=== PATIENT | female | born 1965 | race Caucasian/White ===

== ENCOUNTER 2017-03-26 06:50 | Emergency (ER) | payer SELFPAY ==
[2017-03-26] MEDS ORDERED: Ondansetron ODT 4 MG TAB ONE (07:54)
== END 2017-03-26 09:12 | disposition home or self-care (01) ==
LOC: ERS 06:50
DX: R11.2 Nausea with vomiting, unspecified (principal); J45.909 Unspecified asthma, uncomplicated; F41.9 Anxiety disorder, unspecified; E05.90 Thyrotoxicosis, unspecified without thyrotoxic crisis or storm; G40.909 Epilepsy, unspecified, not intractable, without status epilepticus; F31.9 Bipolar disorder, unspecified; Z87.891 Personal history of nicotine dependence
CPT/HCPCS: 99283; Q0162

== ENCOUNTER 2017-03-30 13:09 | Emergency (ER) | payer SELFPAY ==
[2017-03-30] MEDS ORDERED: Ketorolac Tromethamine 30 MG/ML VIAL ONE (14:45)
== END 2017-03-30 14:57 | disposition home or self-care (01) ==
LOC: ERS 13:09
DX: K08.89 Other specified disorders of teeth and supporting structures (principal); G40.909 Epilepsy, unspecified, not intractable, without status epilepticus; J45.909 Unspecified asthma, uncomplicated; E05.90 Thyrotoxicosis, unspecified without thyrotoxic crisis or storm; F31.9 Bipolar disorder, unspecified; F41.9 Anxiety disorder, unspecified; Z87.891 Personal history of nicotine dependence
CPT/HCPCS: 96372; J1885

== ENCOUNTER 2017-04-26 19:29 | Emergency (ER) | payer SELFPAY | END 2017-04-26 19:45 | disposition home or self-care (01) | LOC: ERS 19:29 | DX: K02.9 Dental caries, unspecified (principal); E05.90 Thyrotoxicosis, unspecified without thyrotoxic crisis or storm; G40.909 Epilepsy, unspecified, not intractable, without status epilepticus; J45.909 Unspecified asthma, uncomplicated; F41.9 Anxiety disorder, unspecified; F31.9 Bipolar disorder, unspecified; Z87.891 Personal history of nicotine dependence | CPT/HCPCS: 99282 ==

== ENCOUNTER 2017-06-14 15:32 | Emergency (ER) | payer SELFPAY ==
--- NOTE | 2017-06-14 18:41 | RAD ---
PA AND LATERAL OF THE CHEST: INDICATIONS: Flu-like symptoms. COMPARISON: No comparisons are available. IMPRESSION: No consolidation. COMMENTS: The lungs are clear. The cardiomediastinal silhouette is within normal limits. No acute osseous abn ormality is evident. POS: [facility]
== END 2017-06-14 18:12 | disposition home or self-care (01) ==
LOC: ERS 15:32
DX: J20.9 Acute bronchitis, unspecified (principal); J45.909 Unspecified asthma, uncomplicated; I50.9 Heart failure, unspecified; F41.9 Anxiety disorder, unspecified; F31.9 Bipolar disorder, unspecified; E05.90 Thyrotoxicosis, unspecified without thyrotoxic crisis or storm; Z87.891 Personal history of nicotine dependence
CPT/HCPCS: 71020; 99406

== ENCOUNTER 2017-06-16 06:06 | Emergency (ER) | payer SELFPAY ==
[2017-06-16 07:04] LABS: #Eosinphils 0.1 thou/uL (0.0-0.7); #Lymphocytes 1.4 thou/uL (1.20-3.40); #Monocytes 0.5 thou/uL (0.11-0.59); #Neutrophils 1.9 thou/uL (1.40-6.50); %Eosinophils 1.8 % (0.0-10.0); %Lymphocytes 36.9 % (21.0-51.0); %Monocytes 11.6 % (0.0-10.0); %Neutrophils 48.7 % (42.0-75.0); Hemoglobin 14.9 g/dL (12.0-16.0); Mean Corpuscular HGB CONC 34.5 g/dL (32.0-36.0); Mean Corpuscular Hemoglobin 32.9 pg (27.0-31.0); Mean Corpuscular Volume 95.4 fl (81.0-99.0); Mean Platelet Volume 10.3 fL (7.4-10.4); Platelet Count 149 thou/uL (130-400); RBC Distribution Width 11.9 % (11.5-14.5); Red Blood Cell (RBC) Count 4.54 mill/uL (4.20-5.40); White Blood Cell (WBC) Count 3.9 thou/uL (4.8-10.8)
[2017-06-16 07:19] LABS: ALT (SGPT) 31 U/L (8-55); AST (SGOT) 25 U/L (5-34); Albumin 4.1 g/dL (3.5-5.0); Alkaline Phosphatase 77 U/L (40-150); Anion Gap 12 mmol/L (10-20); BUN (Urea Nitrogen) 8 mg/dL (7.0-18.7); Bilirubin, Total 0.5 mg/dL (0.2-1.2); Calc. Creatinine Clearance 0 mL/min (70-130); Calcium 9.7 mg/dL (7.8-10.44); Carbon Dioxide 24 mmol/L (22-29); Chloride 108 mmol/L (98-107); Estimated GFR-MDRD 82; Globulin 3.4 g/dL (2.4-3.5); Glucose 108 mg/dL (70-105); Potassium 3.3 mmol/L (3.5-5.1); Protein, Total 7.5 g/dL (6.0-8.3); Sodium 141 mmol/L (136-145)
[2017-06-16 07:23] LABS: CKMB 0.3 ng/mL (0-6.6); Troponin I Less than 0.010 ng/mL (< 0.028)
--- NOTE | 2017-06-16 08:27 | RAD ---
PA AND LATERAL CHEST: History: Dyspnea, shortness of breath. Comparison: 06-14-17 FINDINGS: Heart size and mediastinum within normal limits. The lungs appear mildly hyperexpanded. No focal infi ltrative process seen. IMPRESSION: No active intrathoracic disease. POS: [facility]
--- NOTE | 2017-07-25 18:58 | EKG ---
Test Reason : Blood Pressure : / mmHG Vent. Rate : 073 BPM Atrial Rate : 073 BPM P-R Int : 114 ms QRS Dur : 080 ms QT Int : 398 ms P-R-T Axes : 000 144 134 degrees QTc Int : 438 ms Normal sinus rhythm Left posterior fascicular block Abnormal ECG Confirmed by MOUNIKA INGRAM, RADHA Crump ([id number]), desk editor SANGEETA BLISS ([id number]) on 07/25/2017 6:58:06 PM Referred By: Confirmed By:RADHA RIBERA MD
== END 2017-06-16 12:55 | disposition home or self-care (01) ==
LOC: ERS 06:06
DX: J20.9 Acute bronchitis, unspecified (principal); E05.90 Thyrotoxicosis, unspecified without thyrotoxic crisis or storm; J45.909 Unspecified asthma, uncomplicated; I50.9 Heart failure, unspecified; G40.909 Epilepsy, unspecified, not intractable, without status epilepticus; F41.9 Anxiety disorder, unspecified; F31.9 Bipolar disorder, unspecified; Z87.891 Personal history of nicotine dependence; Z79.899 Other long term (current) drug therapy
CPT/HCPCS: 36415; 71046; 80053; 82553; 84484; 85025; 85379; 93005; 94640; 94760; J7620